=== PATIENT | female | born 1940 | race Hispanic/Latino ===

== ENCOUNTER 2022-05-05 10:24 | Emergency (ER) | payer MEDICARE, OTHER ==
[~2022-05-05] VITALS: Ht 152.4 cm; Wt 98.0 kg
[~2022-05-05 10:24] MED LIST: ASPIR-LOW81 MG PO; ATORVASTATIN CA10 MG PO; NEXIUM40 MG PO; OXYBUTYNIN CHLO10 MG PO; ULTRAM50 MG PO; Z.0.ALENDRONATE SOD7 PO; Z.0.CARVEDILOL12.5 M PO; Z.0.NITROSTAT0.4 MG SL; Z.0.TOVIAZ4 MG PO; [UNRECOGNIZED DRUG - REMARK]
[2022-05-05] MEDS ORDERED: HYDROCODONE/APAP 5MG-325MG TAB PO ONE (10:45)
[2022-05-05] MEDS ORDERED: KETAMINE HCL INJ 50 MG/ML 10 ML VIAL IV ONE (14:30)
[2022-05-05] MEDS ORDERED: PROPOFOL IV EMULSION 10 MG/ML 20 ML VIAL IV ONE (14:30)
[2022-05-05 17:06] VITALS: BP 126/80
== END 2022-05-05 17:07 | disposition home or self-care (01) ==
LOC: ER 10:55
DX: S43.014A Anterior dislocation of right humerus, initial encounter (principal); S00.83XA Contusion of other part of head, initial encounter; M25.562 Pain in left knee; M25.552 Pain in left hip; M25.551 Pain in right hip; W18.39XA Other fall on same level, initial encounter; Y92.89 Other specified places as the place of occurrence of the external cause; Z98.0 Intestinal bypass and anastomosis status
CPT/HCPCS: 23655; 70450; 72125; 73030 ×2; 73060; 73200; 73521; 73560; 94799; 99285; J2704

== ENCOUNTER 2023-03-13 08:21 | Emergency (ER) | payer MEDICARE ==
[~2023-03-13] VITALS: Ht 152.4 cm; Wt 98.0 kg
[2023-03-13 09:13] LABS: BASOPHILS % 0.6 % (0.0-1.0); EOSINOPHILS # (AUTO) 0.4 (0.0-0.4); EOSINOPHILS % 5.2 % (0.0-6.0); HEMATOCRIT 44.5 % (34.2-44.1); HEMOGLOBIN 13.9 g/dL (12.0-16.0); LYMPHOCYTES # (AUTO) 2.3 (1.0-3.2); LYMPHOCYTES % 33.3 % (18.0-39.1); MEAN CORPUSCULAR HEMOGLOBIN 28.4 pg (28-32); MEAN CORPUSCULAR HGB CONC 31.2 g/dL (31-35); MEAN CORPUSCULAR VOLUME 90.8 fL (81-99); MONOCYTES # (AUTO) 0.7 (0.2-0.8); MONOCYTES % 9.7 % (4.4-11.3); NEUTROPHILS # (AUTO) 3.5 (2.1-6.9); NEUTROPHILS % 50.6 % (38.7-80.0); PLATELET COUNT 211 x10e3/uL (140-360)
[2023-03-13] MEDS ORDERED: ALBUTEROL/IPRATROPIUM 3 ML NEB NEB ONE (09:15)
[2023-03-13 09:37] LABS: ALBUMIN 3.2 g/dL (3.5-5.0); ALBUMIN/GLOBULIN RATIO 0.9 (0.8-2.0); ANION GAP 13.2 mmol/L (8-16); CALCIUM 10.8 mg/dL (8.4-10.2); CREATININE, SERUM 0.58 mg/dL (0.57-1.11); POTASSIUM 4.2 mmol/L (3.5-5.1)
[2023-03-13] MEDS ORDERED: BENZONATATE100 MG PO (11:21)
== END 2023-03-13 11:29 | disposition home or self-care (01) ==
LOC: ER 08:32
DX: R05.9 Cough, unspecified (principal); J06.9 Acute upper respiratory infection, unspecified; I10 Essential (primary) hypertension; Z20.822 Contact with and (suspected) exposure to COVID-19; Z98.0 Intestinal bypass and anastomosis status
CPT/HCPCS: 36415; 71046; 80053; 83880; 85025; 87400; 94640; 94799; 99284; U0002

== ENCOUNTER 2025-08-08 07:27 | Emergency (ER) | payer MEDICARE ==
[~2025-08-08] VITALS: Ht 152.4 cm; Wt 98.0 kg
[~2025-08-08 07:27] MED LIST changes: +BENZONATATE100 MG PO
[2025-08-08 07:50] VITALS: TEMP 98.2
[2025-08-08] MEDS: SODIUM CHLORIDE 0.9% 1000ML 1,000 ML IV STA ×2 (08:15→10:26)
[2025-08-08] MEDS: ONDANSETRON HCL INJ 2MG/ML 2ML 2 MG/ML VIAL IV STA (08:15)
[2025-08-08 08:36] LABS: BASOPHILS % 0.2 % (0.0-1.0); EOSINOPHILS % 1.2 % (0.0-6.0); LYMPHOCYTES % 32.3 % (18.0-39.1); MONOCYTES % 10.0 % (4.4-11.3); NEUTROPHILS % 55.9 % (38.7-80.0); RED CELL DISTRIBUTION WIDTH 13.4 % (11.7-14.4)
[2025-08-08 09:02] LABS: INR 0.89
[2025-08-08 09:11] LABS: EST GLOMERULAR FILTRATION RATE 88.0 ML/MIN (>=60)
[2025-08-08] MEDS ORDERED: IOPAMIDOL 370 MG/ML 100 ML INFUS..BTL INJ ONE (09:31)
[2025-08-08 10:07] LABS: LEUKOCYTE ESTERASE ,URINE NEGATIVE (NEGATIVE); PROTEIN,URINE DIPSTICK TRACE (NEGATIVE); URINE UROBILINOGEN 0.2 mg/dL (0.2 - 1)
[2025-08-08 10:21] LABS: EPITHELIAL CELLS,URINE FEW /LPF
[2025-08-08] MEDS ORDERED: DICYCLOMINE HCL20 MG PO (11:05)
[2025-08-08] MEDS ORDERED: ONDANSETRON ODT4 MG PO (11:05)
[2025-08-08 11:45] VITALS: PULSE 62; RESP 18; O2SAT 96
== END 2025-08-08 12:00 | disposition home or self-care (01) ==
LOC: ER 07:33
DX: R11.2 Nausea with vomiting, unspecified (principal); R19.7 Diarrhea, unspecified; K43.9 Ventral hernia without obstruction or gangrene; R10.32 Left lower quadrant pain
CPT/HCPCS: 36415; 74177; 80053; 81001; 83735; 84484; 85025; 85610; 85730; 93005; 99284; J2405; J2470; J7030; Q9967